=== PATIENT | male | born 1950 | race Caucasian/White ===

== ENCOUNTER → 2018-12-31 | Outpatient (CLI) | payer MEDICARE ==
--- NOTE | 2018-12-31 11:16 | NM ---
EXAMINATION TYPE: NM bone scan whole body DATE OF EXAM: 12/31/2018 COMPARISON: CT abdomen pelvis 12/31/2018 HISTORY: Prostate cancer Delayed whole-body scanning was performed following the injection of 26.1 mCi Tc 99m MDP. Images acq uired 3 hours post injection. FINDINGS: There is abnormal uptake involving the shoulders greater on the right likely post arthritic. Soft tis krystyna contamination seen in the region of the perineum. No suspicious uptake identified to suggest meta stases. Faint uptake involving the mandible likely related to periodontal disease. IMPRESSION: 1. No diagnostic evidence of metastases.
--- NOTE | 2018-12-31 14:43 | CT ---
EXAMINATION TYPE: CT abdomen chest, pelvis w con DATE OF EXAM: 12/31/2018 COMPARISON: Chest x-ray 01/01/2015, bone scan 12/31/2018 HISTORY: Prostate cancer CT DLP: 1006 mGycm Automated exposure control for dose reduction was used. TECHNIQUE: Helical acquisition of images from the lung apices through the pelvis have been completed . CONTRAST: Performed with Oral Contrast and with IV Contrast, patient injected with 80 mL of Isovue 300. FINDINGS: Coronary artery calcifications are present. Surgical clips are present in the right groin. Suspect a small left inguinal hernia containing fat. LUNGS: No significant abnormality is appreciated. Some minimal dependent atelectatic changes. AORTA: Ascending aorta measures 4.6 cm.. LIVER/GB: Liver is enlarged and shows low attenuation likely due to hepatic steatosis. Gallbladder is normal.. PANCREAS: No significant abnormality is seen. SPLEEN: No significant abnormality is seen. ADRENALS: No significant abnormality is seen. KIDNEYS: No significant abnormality is seen. REPRODUCTIVE ORGANS: No significant abnormality is seen BOWEL: Extensive diverticular change noted in the sigmoid colon. No bowel obstruction. Appendix is n ormal. FREE AIR: No Free Air visible. ASCITES: None visible. PELVIC ADENOPATHY: None visualized. RETROPERITONEAL ADENOPATHY: No Retroperitoneal Adenopathy visible. URINARY BLADDER: No significant abnormality is seen. OSSEOUS STRUCTURES: Degenerative disc changes are present in the lumbosacral junction. IMPRESSION: ASCENDING AORTIC ANEURYSM, FOLLOW-UP RECOMMENDED. Diverticulosis.
== END | disposition home or self-care (01) ==
LOC: RADCTMAIN 07:09
PROVIDERS: ATTEND Urology
DX: I71.2 Thoracic aortic aneurysm, without rupture (principal); K57.90 Diverticulosis of intestine, part unspecified, without perforation or abscess without bleeding; C61 Malignant neoplasm of prostate
CPT/HCPCS: 82565; 84520; 74177; 36415 ×2; 78306; A9503; Q9967 ×2

== ENCOUNTER → 2019-01-24 | Outpatient (CLI) | payer MEDICARE | END | disposition home or self-care (01) | LOC: LABWHC1 11:27 | PROVIDERS: ATTEND Radiology Radiation Oncology | DX: C61 Malignant neoplasm of prostate (principal) | CPT/HCPCS: 36415; 84153 ==

== ENCOUNTER → 2019-07-17 | Outpatient (CLI) | payer MEDICARE ==
[2019-07-17 11:04] LABS: Basophils # (A) 0.1 k/uL (0-0.2); Basophils % (A) 1 %; Eosinophils # (A) 0.1 k/uL (0-0.7); Eosinophils % (A) 1 %; HCT 43.9 % (39.0-53.0); HGB 14.4 gm/dL (13.0-17.5); Lymphocytes # (A) 2.5 k/uL (1.0-4.8); Lymphocytes % (A) 27 %; MCH 29.4 pg (25.0-35.0); MCHC 32.7 g/dL (31.0-37.0); MCV 89.8 fL (80.0-100.0); Mean Platelet Volume 8.1; Monocytes # (A) 0.6 k/uL (0-1.0); Monocytes % (A) 6 %; Neutrophils # (A) 5.8 k/uL (1.3-7.7); Neutrophils % (A) 63 %; Platelet Count 210 k/uL (150-450); RBC 4.89 m/uL (4.30-5.90); RDW 13.3 % (11.5-15.5); WBC 9.2 k/uL (3.8-10.6)
[2019-07-17 11:41] LABS: Calcium 9.3 mg/dL (8.4-10.2); Potassium 4.6 mmol/L (3.5-5.1)
== END | disposition home or self-care (01) ==
LOC: LABPAT 10:07
PROVIDERS: ATTEND Urology
DX: Z01.818 Encounter for other preprocedural examination (principal); C61 Malignant neoplasm of prostate
CPT/HCPCS: 36415; 80048; 85025

== ENCOUNTER → 2019-07-22 | Outpatient (CLI) | payer MEDICARE | END | disposition home or self-care (01) | LOC: LABWHC1 12:20 | PROVIDERS: ATTEND Urology | DX: U07.1 COVID-19 (principal) | CPT/HCPCS: 87635 ==

== ENCOUNTER → 2019-07-24 | Day surgery (SDC) | payer MEDICARE ==
--- NOTE | 2019-07-22 11:30 | P.HPIHPCON ---
History of Present Illness H&P Date: 07/24/19 Chief Complaint: rostate cancer Mr Barbara is 69 yo male with hx of theodore 8 prostate cancer. He elected to proceed with radiation therapy, he is currently on ADT. He elected to proceed with SpaceOR placement. I discussed with risk of bleeding and infection. I discussed the benefit of performing SpaceOR placement Also discussed risk of rectal and prostate injury. I discussed with him the risk from anesthesia which includes but not limited to heart attack, stroke, blood clots and even loss of life. He understood all the risk and agreed to proceed Consent for Procedure: I have explained the operation/procedure to the patient, including the risks, benefits, side effects, alternative therapies (including not receiving the proposed treatment or service), the likelihood of the patient achieving his/her goals, and potential recuperation problems for the procedure/sedation/analgesia, as well as any blood products, if indicated. I also explained to the patient the risks, benefits and side effects of the alternatives, as well as the risks related to not receiving the proposed procedure, care, treatment, or services. Past Medical History Past Medical History: COPD, Myocardial Infarction ([place]) Additional Past Medical History / Comment(s): STATES "LT SIDE OF HEART WEAK" Last Myocardial Infarction Date:: UNK History of Any Multi-Drug Resistant Organisms: None Reported Past Surgical History: Heart Catheterization Past Anesthesia/Blood Transfusion Reactions: Motion Sickness Smoking Status: Never smoker Medications and Allergies Home Medications Medication Instructions Recorded Confirmed Type ALPRAZolam [Xanax] 1 mg PO DAILY PRN 01/27/14 01/29/14 History Acetaminophen-Codeine 300-30mg 1 tab PO DAILY PRN 01/27/14 01/29/14 History [Tylenol w/codeine #3] Aspirin 81 mg PO DAILY 01/27/14 01/27/14 History Cyclobenzaprine [Flexeril] 10 mg PO HS PRN 01/27/14 01/29/14 History Rosuvastatin Calcium [Crestor] 10 mg PO DAILY 01/27/14 01/29/14 History Allergies Allergy/AdvReac Type Severity Reaction Status Date / Time aspirin AdvReac STATES Verified 01/27/14 14:37 "UPSETS STOMACH IN LARGER DOSES THAN 81MG" Surgical - Exam - General well developed, well nourished, no distress - Respiratory normal expansion, normal respiratory effort Assessment and Plan Assessment: 69 yo male with hx of G 8 prostate cancer, interested in proceeding with EBRT -OR for SpaceOR placement
[2019-07-23 10:01] VITALS: BMI 25.7
[~2019-07-24] MED LIST: DEXAMETHASONE SOD PHOSPHATE 10 MG/ML 1 ML VIAL IV ONE; HYDROmorphone 0.5 MG/0.5 ML SYRINGE IVP PRN; LACTATED RINGERS 1,000 ML IV ONE; LACTATED RINGERS 1,000 ML IV SCH; LIDOCAINE 2% INJ 20 MG/ML SQ ONE; MIDAZOLAM 2 MG/2 ML VIAL ONE; ONDANSETRON 4 MG/2 ML VIAL IVP ONE; PROPOFOL 10 MG/ML 20 ML VIAL IV ONE; fentaNYL (PF) 50 MCG/ML 2 ML AMP ONE
[2019-07-24 07:48] VITALS: TEMP 97.9
--- NOTE | 2019-07-24 09:22 | P.OP ---
Date of Procedure: 07/24/19 Preoperative Diagnosis: Adenocarcinoma of the prostate Postoperative Diagnosis: Same Procedure(s) Performed: SpaceOAR Hydrogel Implant Anesthesia: MAC Surgeon: Jules Goldsmith Estimated Blood Loss (ml): 5 IV fluids (ml): 500 Pathology: none sent Condition: stable Disposition: PACU Indications for Procedure: The patient is a 69-year-old white male diagnosed with Jose 8 adenocarcinoma. He is being treated with IMRT and androgen deprivation therapy. He has elected to undergo SpaceOAR hydrogel implant to decrease rectal toxicity associated with radiation therapy. Operative Findings: Excellent separation of the prostate and rectum is achieved. Description of Procedure: The patient was taken to the operating room and placed in the dorsolithotomy position, with his legs supported in Vasyl stirrups. The external genitalia was prepped and draped sterilely. The Bruel and Kjaer transrectal ultrasound probe was placed intrarectally. The prostate was imaged. The probe was then placed within the stabilizing stand. A spinal needle was advanced under ultrasonic guidance to the level of the urogenital diaphragm, and lidocaine was used to infiltrate the tissues as the needle was withdrawn. Next, the SpaceOAR needle was passed through the midline of the perineum, 1-2 cm anterior to the anal opening. The needle was slowly advanced under ultrasonic guidance until the needle tip was located within the fat plane between the prostate and rectum, at the level of the mid prostate gland. The needle was confirmed to be midline on the axial imaging. A small amount of normal saline was injected for hydrodissection. Next, the SpaceOAR components were mixed and loaded into the Y connector per protocol. The Y connector was then connected to the needle, and the components were injected slowly over a course of approximately 12 seconds. A total of 10 ml was injected. Significant distance was created between the prostate and rectum, as desired. It should be noted that at no point was there any concern of rectal perforation. The needle was withdrawn, as well as the transrectal ultrasound probe, and the procedure was terminated. The patient tolerated the procedure well and was taken to the recovery room in stable condition.
[2019-07-24 09:26] VITALS: BP 115/74; PULSE 64; RESP 16
== END | disposition home or self-care (01) ==
LOC: OR 07:28
PROVIDERS: ATTEND Urology
DX: C61 Malignant neoplasm of prostate (principal); Z88.6 Allergy status to analgesic agent; E78.5 Hyperlipidemia, unspecified; Z79.899 Other long term (current) drug therapy; Z98.890 Other specified postprocedural states; J44.9 Chronic obstructive pulmonary disease, unspecified; I25.2 Old myocardial infarction; Z98.61 Coronary angioplasty status; Z79.82 Long term (current) use of aspirin

== ENCOUNTER → 2019-08-14 | Outpatient (CLI) | payer MEDICARE ==
[2019-08-14 10:42] LABS: Basophils % (A) 0 %; Eosinophils # (A) 0.1 k/uL (0-0.7); Eosinophils % (A) 1 %; HCT 45.3 % (39.0-53.0); HGB 14.4 gm/dL (13.0-17.5); Lymphocytes % (A) 32 %; MCH 28.3 pg (25.0-35.0); MCHC 31.8 g/dL (31.0-37.0); MCV 89.1 fL (80.0-100.0); Mean Platelet Volume 8.1; Monocytes # (A) 0.4 k/uL (0-1.0); Monocytes % (A) 6 %; Neutrophils # (A) 3.6 k/uL (1.3-7.7); Neutrophils % (A) 58 %; Platelet Count 212 k/uL (150-450); RBC 5.08 m/uL (4.30-5.90); RDW 13.1 % (11.5-15.5); WBC 6.3 k/uL (3.8-10.6)
[2019-08-14 19:30] LABS: African American GFR (CKD) 71.6 (60.0-200.0); Albumin 4.2 g/dL (3.80-4.90); Albumin/Globulin Ratio 1.83 (1.60-3.17); Anion Gap 5.1 mmol/L (4.00-12.00); BUN/Creat Ratio 20.83 Ratio (12.00-20.00); Calcium 9.4 mg/dL (8.7-10.3); Carbon Dioxide 24.9 mmol/L (21.6-31.8); Chol/HDL Ratio 4.13; Globulin 2.3 g/dL (1.6-3.3); LDL Cholesterol,Calculated 93.2 mg/dL (0.0-131.0); Non-African American GFR(CKD) 61.8 (60.0-200.0); Potassium 4.4 mmol/L (3.5-5.5); Total Bilirubin 0.4 mg/dL (0.3-1.2); Total Protein 6.5 g/dL (6.2-8.2); VLDL Calculation 69.8 mg/dL (5.00-40.00)
== END | disposition home or self-care (01) ==
LOC: LABWHC1 08:53
PROVIDERS: ATTEND Internal Medicine
DX: Z00.01 Encounter for general adult medical examination with abnormal findings (principal); E78.00 Pure hypercholesterolemia, unspecified
CPT/HCPCS: 36415; 80053; 80061; 85025

== ENCOUNTER → 2019-09-26 | Outpatient (CLI) | payer MEDICARE | END | disposition home or self-care (01) | LOC: LABWHC1 10:03 | PROVIDERS: ATTEND Urology | DX: R97.20 Elevated prostate specific antigen [PSA] (principal) | CPT/HCPCS: 36415; 84153 ==